=== PATIENT | female | born 1950 | race Caucasian/White ===

== ENCOUNTER 2022-02-10 15:24 | Inpatient (IN) | payer MEDICARE, MEDICAID ==
[~2022-02-10] VITALS: Ht 162.6 cm; Wt 75.2 kg
[~2022-02-10 15:24] MED LIST: CLON-592 PO; ESOM40CA PO; FLUO40CA7 PO; HALO10TA20 PO; LEVA1.2525 NEB; LEVO25TA4 PO; LORA1TAB3 PO; TEMA30 PO; TRIH2TAB3 PO; ZIPR80CA2 PO
[2022-02-10] MEDS ORDERED: MethylPREDNISolone SOD SUCC 125 MG/2 ML VIAL IVP ONE (16:00)
[2022-02-10] MEDS ORDERED: ALBUTEROL SULFATE 5 MG/ML 20 ML NEB SOLN [BULK] NEB ONE (16:00)
[2022-02-10] MEDS ORDERED: SODIUM CHLORIDE 0.9% 1,000 ML IV ONE ×2 (16:00→21:30)
[2022-02-10 16:29] LABS: BASOPHILS % (AUTO) 0.2 % (0.0-2.0); EOSINOPHILS % (AUTO) 0.2 % (1.0-6.0); HEMATOCRIT 26.7 % (36-46); HEMOGLOBIN 8.1 g/dL (12.0-16.0); LYMPHOCYTES # (AUTO) 0.7 K/uL (1.0-4.8); LYMPHOCYTES % (AUTO) 5.2 % (22.0-44.0); MEAN CORPUSCULAR HEMOGLOBIN 21.4 pg (26.0-34.0); MEAN CORPUSCULAR HGB CONC 30.5 G/dL (31.0-37.0); MEAN CORPUSCULAR VOLUME 70 fL (80-100); MONOCYTES # (AUTO) 0.9 K/uL (0.1-1.0); MONOCYTES % (AUTO) 6.2 % (2.0-9.0); NEUTROPHILS # (AUTO) 12.4 K/uL (1.8-7.7); PLATELET COUNT (AUTO) 422 K/uL (150-450); RED CELL DISTRIBUTION WIDTH 20.5 % (11.5-14.5)
[2022-02-10 16:33] LABS: NEUTROPHILS % (AUTO) 88.2 % (40.0-70.0)
[2022-02-10 16:35] LABS: COVID AG,FIA SOURCE NASOPHARYNGEAL
[2022-02-10 16:40] LABS: CALCIUM, TOTAL 9.2 mg/dL (8.8-10.5); CREATININE 1.63 mg/dL (0.60-1.30); POTASSIUM 4.3 mmol/L (3.5-5.1)
[2022-02-10 16:46] LABS: ALBUMIN 2.7 g/dL (3.4-5.0); BILIRUBIN,TOTAL 0.2 mg/dL (0.1-1.0)
[2022-02-10 16:46] LABS: APPEARANCE,URINE HAZY (CLEAR); BILIRUBIN,URINE NEGATIVE (NEGATIVE); GLUCOSE, URINE (UA) NEGATIVE (NEGATIVE); KETONES,URINE NEGATIVE (NEGATIVE); LEUKOCYTE ESTERASE ,URINE MODERATE (NEGATIVE); NITRATE,URINE POSITIVE (NEGATIVE); OCCULT BLOOD,URINE NEGATIVE (NEGATIVE); PROTEIN,URINE TRACE mg/dL (NEGATIVE); SPECIFIC GRAVITIY, URINE 1.014 (1.003-1.030); UROBILINOGEN,URINE <=1.0 mg/dL (<=1.0)
[2022-02-10 16:56] LABS: INFLUENZA TYPE A NEGATIVE FOR TYPE A (NEGATIVE); INFLUENZA TYPE B NEGATIVE FOR TYPE B (NEGATIVE)
[2022-02-10 17:10] LABS: BACTERIA,URINE Many /HPF (None Seen); RBC,URINE 0-2 /HPF (0-2); SQUAMOUS EPITHELIAL CELL,UR Few /LPF (None Seen)
[2022-02-10] MEDS ORDERED: LEVOFLOXACIN 500 MG/D5% WATER 100 ML IV ONE (17:15)
[2022-02-10] MEDS ORDERED: PIPERACILLIN/TAZO 3.375 GM/D5W 50 ML IV ONE (17:15)
[2022-02-10] MEDS ORDERED: LORA-1000 PO (17:19)
[2022-02-10] MEDS ORDERED: TEMA15CA PO (17:19)
[2022-02-10] MEDS ORDERED: HALO10TA21 PO (17:19)
[2022-02-10] MEDS ORDERED: *CLINICAL-LEVOFLOXACIN IVPB DOSING CLINICAL ONE (19:00)
[2022-02-10] MEDS ORDERED: ACETAMINOPHEN 325 MG TABLET PO PRN (19:00)
[2022-02-10] MEDS ORDERED: IPRATROPIUM BROMIDE 0.5 MG/2.5 ML NEB SOLUTION NEB PRN (19:00)
[2022-02-10] MEDS ORDERED: IPRATROPIUM BROMIDE 0.5 MG/2.5 ML NEB SOLUTION NEB SCH (19:00)
[2022-02-10] MEDS ORDERED: ALBUTEROL SULFATE 2.5 MG/0.5 ML NEB SOLUTION NEB SCH (19:00)
[2022-02-10] MEDS ORDERED: ONDANSETRON HCL 4 MG/2 ML VIAL IVP PRN ×2 (19:00)
[2022-02-10] MEDS ORDERED: ALBUTEROL SULFATE 2.5 MG/0.5 ML NEB SOLUTION NEB PRN (19:00)
[2022-02-10 20:23] LABS: % IRON SATURATION 2.3 % (22-44)
[2022-02-10] MEDS ORDERED: LEVOFLOXACIN 250 MG/D5% WATER 50 ML IV ONE (21:00)
[2022-02-10] MEDS: SODIUM CHLORIDE 0.9% 1,000 ML IV SCH (21:30)
[2022-02-10] MEDS ORDERED: NALOXONE HCL 0.4 MG/ML VIAL IVP ONE (21:30)
[2022-02-10] MEDS ORDERED: AMLO-257 PO (22:16)
[2022-02-10] MEDS ORDERED: ATOR10TA PO (22:16)
[2022-02-10] MEDS ORDERED: LOSA-382 PO (22:16)
[2022-02-10] MEDS ORDERED: CLON-592 PO (22:16)
[2022-02-10] MEDS ORDERED: SODIUM CHLORIDE PO (22:16)
[2022-02-10] MEDS ORDERED: LEVO50 PO (22:16)
[2022-02-10] MEDS ORDERED: METF-1211 PO (22:16)
[2022-02-10] MEDS ORDERED: HALO50AM2 IM (22:16)
[2022-02-10] MEDS ORDERED: TRIH5TAB3 PO (22:16)
[2022-02-10] MEDS ORDERED: MAGN200T5 PO (22:16)
[2022-02-10] MEDS ORDERED: ZIPR40CA38 PO (22:16)
[2022-02-10] MEDS ORDERED: FLUO10CA24 PO (22:16)
[2022-02-10] MEDS ORDERED: [UNRECOGNIZED DRUG - OTHER] PO (22:16)
[2022-02-10] MEDS ORDERED: TRAZ-252 PO (22:16)
[2022-02-11] MEDS ORDERED: HEPARIN SODIUM,PORCINE 5,000 UNITS/ML VIAL SQ SCH
[2022-02-11 01:14] VITALS: BP 136/86
[2022-02-11 06:38] LABS: EOSINOPHILS % (AUTO) 0 % (1.0-6.0); HEMATOCRIT 24.9 % (36-46); HEMOGLOBIN 7.7 g/dL (12.0-16.0); LYMPHOCYTES # (AUTO) 0.5 K/uL (1.0-4.8); LYMPHOCYTES % (AUTO) 3.9 % (22.0-44.0); MEAN CORPUSCULAR HEMOGLOBIN 21.8 pg (26.0-34.0); MEAN CORPUSCULAR VOLUME 70 fL (80-100); MONOCYTES # (AUTO) 0.1 K/uL (0.1-1.0); MONOCYTES % (AUTO) 1.2 % (2.0-9.0); NEUTROPHILS # (AUTO) 11.4 K/uL (1.8-7.7); PLATELET COUNT (AUTO) 346 K/uL (150-450); RED BLOOD CELL COUNT(AUTO) 3.53 MIL/uL (4.00-5.20)
[2022-02-11 06:47] LABS: CALCIUM, TOTAL 8.7 mg/dL (8.8-10.5); CREATININE 1.18 mg/dL (0.60-1.30); MAGNESIUM 2.2 mg/dL (1.80-2.40); POTASSIUM 4.2 mmol/L (3.5-5.1)
[2022-02-11 07:07] LABS: NEUTROPHILS % (AUTO) 94.9 % (40.0-70.0)
[2022-02-11 07:10] VITALS: BP 150/78
[2022-02-11 08:40] LABS: AMPHET/METH SCREEN,URINE NEGATIVE (NEGATIVE); BARBITURATE SCREEN, URINE NEGATIVE (NEGATIVE); BENZODIAZEPINES SCREEN,URINE NEGATIVE (NEGATIVE); CANNABINOID SCREEN,URINE NEGATIVE (NEGATIVE); COCAINE SCREEN,URINE NEGATIVE (NEGATIVE); METHADONE SCREEN, URINE NEGATIVE (NEGATIVE); OPIATE SCREEN,URINE NEGATIVE (NEGATIVE)
[2022-02-11 08:42] LABS: PHENCYCLIDINE SCREEN,URINE POSITIVE (NEGATIVE)
[2022-02-11] MEDS ORDERED: ZIPR60CA29 PO (10:45)
[2022-02-11] MEDS ORDERED: FLUO20CA36 PO (10:45)
[2022-02-11] MEDS ORDERED: NACL1 PO (10:45)
[2022-02-11] MEDS ORDERED: HALO100V36 IM (10:45)
[2022-02-11] MEDS ORDERED: MAGN400T57 PO (10:45)
[2022-02-11] MEDS ORDERED: TRAZ150T80 PO (10:45)
[2022-02-11 11:10] VITALS: BP 142/63
[2022-02-11] MEDS ORDERED: LEVOFLOXACIN 500 MG/D5% WATER 100 ML IV SCH (11:45)
[2022-02-11] MEDS: SODIUM CHLORIDE 0.9% 1,000 ML IV SCH (13:08)
[2022-02-11 15:27] VITALS: BP 136/78
[2022-02-11 19:29] VITALS: BP 143/72
[2022-02-11 23:41] VITALS: BP 131/57
[2022-02-12] MEDS: LEVOFLOXACIN 500 MG/D5% WATER 100 ML IV SCH (00:18)
[2022-02-12] MEDS: HEPARIN SODIUM,PORCINE 5,000 UNITS/ML VIAL SQ SCH ×3 (00:18→17:15)
[2022-02-12] MEDS: SODIUM CHLORIDE 0.9% 1,000 ML IV SCH ×2 (02:32→20:00)
[2022-02-12 06:13] VITALS: BP 145/59
[2022-02-12 07:43] VITALS: BP 149/80
[2022-02-12 10:52] VITALS: BP 124/58
[2022-02-12 15:32] VITALS: BP 135/66
[2022-02-12] MEDS ORDERED: LEVOFLOXACIN 750 MG/D5% WATER 150 ML IV SCH (18:00)
[2022-02-12 20:15] VITALS: BP 133/73
[2022-02-13] MEDS: LEVOFLOXACIN 500 MG/D5% WATER 100 ML IV SCH (00:13)
[2022-02-13] MEDS: HEPARIN SODIUM,PORCINE 5,000 UNITS/ML VIAL SQ SCH ×3 (00:13→16:30)
[2022-02-13 00:18] VITALS: BP 146/74
[2022-02-13 06:05] VITALS: BP 138/59
[2022-02-13 07:30] VITALS: BP 148/67
[2022-02-13 10:10] LABS: BASOPHILS % (AUTO) 0.2 % (0.0-2.0); EOSINOPHILS % (AUTO) 1.5 % (1.0-6.0); HEMATOCRIT 26.5 % (36-46); HEMOGLOBIN 8.4 g/dL (12.0-16.0); LYMPHOCYTES # (AUTO) 1.2 K/uL (1.0-4.8); LYMPHOCYTES % (AUTO) 12.7 % (22.0-44.0); MEAN CORPUSCULAR HEMOGLOBIN 22.2 pg (26.0-34.0); MEAN CORPUSCULAR HGB CONC 31.7 G/dL (31.0-37.0); MEAN CORPUSCULAR VOLUME 70 fL (80-100); MONOCYTES # (AUTO) 0.6 K/uL (0.1-1.0); MONOCYTES % (AUTO) 6.4 % (2.0-9.0); NEUTROPHILS # (AUTO) 7.7 K/uL (1.8-7.7); NEUTROPHILS % (AUTO) 79.2 % (40.0-70.0); PLATELET COUNT (AUTO) 403 K/uL (150-450); RED BLOOD CELL COUNT(AUTO) 3.79 MIL/uL (4.00-5.20); RED CELL DISTRIBUTION WIDTH 19.9 % (11.5-14.5)
[2022-02-13 10:16] LABS: CALCIUM, TOTAL 8.8 mg/dL (8.8-10.5); CREATININE 0.94 mg/dL (0.60-1.30); POTASSIUM 4.2 mmol/L (3.5-5.1)
[2022-02-13 10:23] LABS: ALBUMIN 2.3 g/dL (3.4-5.0); BILIRUBIN,TOTAL 0.2 mg/dL (0.1-1.0); TOTAL PROTEIN, SERUM 6.8 g/dL (6.4-8.2)
[2022-02-13 11:10] VITALS: BP 138/54
[2022-02-13] MEDS ORDERED: TRIH5TAB4 PO (11:51)
[2022-02-13 15:23] LABS: AMPHET/METH SCREEN,URINE NEGATIVE (NEGATIVE); BARBITURATE SCREEN, URINE NEGATIVE (NEGATIVE); BENZODIAZEPINES SCREEN,URINE NEGATIVE (NEGATIVE); CANNABINOID SCREEN,URINE NEGATIVE (NEGATIVE); COCAINE SCREEN,URINE NEGATIVE (NEGATIVE); METHADONE SCREEN, URINE NEGATIVE (NEGATIVE); OPIATE SCREEN,URINE NEGATIVE (NEGATIVE)
[2022-02-13 15:30] LABS: PHENCYCLIDINE SCREEN,URINE NEGATIVE (NEGATIVE)
[2022-02-13] MEDS ORDERED: ALBU8HFA IH (15:32)
[2022-02-13] MEDS ORDERED: LEVO750T68 PO (15:32)
[2022-02-13 15:45] VITALS: BP 145/74
[2022-02-13] MEDS: SODIUM CHLORIDE 0.9% 1,000 ML IV SCH (18:55)
[2022-02-13 20:47] VITALS: BP 158/73
[2022-02-14] MEDS ORDERED: GuaiFENesin SR 600 MG ER TABLET PO PRN
[2022-02-14] MEDS ORDERED: ZOLPIDEM TARTRATE 5 MG TABLET PO PRN
[2022-02-14] MEDS: LEVOFLOXACIN 500 MG/D5% WATER 100 ML IV SCH (00:14)
[2022-02-14] MEDS: HEPARIN SODIUM,PORCINE 5,000 UNITS/ML VIAL SQ SCH ×2 (00:14→09:00)
[2022-02-14 00:59] VITALS: BP 147/72
[2022-02-14 04:53] VITALS: BP 136/70
[2022-02-14 07:42] VITALS: BP 141/76
[2022-02-14] MEDS ORDERED: ETHYL ALCOHOL 62% ANTISEPTIC NASAL SANITIZER 0.6 ML AMPUL NASAL ONE (08:15)
[2022-02-14 11:36] VITALS: BP 139/60
[2022-02-14 15:12] VITALS: BP 163/73
[2022-02-14 15:54] LABS: COVID AG,FIA SOURCE NASAL SWAB
[2022-02-14] MEDS ORDERED: ClonazePAM 0.5 MG TABLET PO SCH (16:00)
[2022-02-14 16:56] VITALS: BP 128/56
[2022-02-14] MEDS ORDERED: ATORVASTATIN CALCIUM 10 MG TABLET PO SCH (21:00)
[2022-02-15] MEDS ORDERED: LEVOTHYROXINE SODIUM 50 MCG TABLET PO SCH (06:30)
[2022-02-15] MEDS ORDERED: MetFORMIN HCL 500 MG TABLET PO SCH (08:00)
[2022-02-15] MEDS ORDERED: OMEGA-3/DHA/EPA/FISH OIL 1,000 MG CAPSULE PO SCH (09:00)
[2022-02-15] MEDS ORDERED: LOSARTAN POTASSIUM 50 MG TABLET PO SCH (09:00)
[2022-02-15] MEDS ORDERED: AmLODIPine BESYLATE 5 MG TABLET PO SCH (09:00)
[2022-02-15] MEDS ORDERED: LEVOFLOXACIN 750 MG TABLET PO SCH (09:00)
[2022-02-22] MEDS ORDERED: HALOPERIDOL DECANOATE 100 MG/ML VIAL IM SCH (09:00)
== END 2022-02-14 18:50 | DRG 871 ==
LOC: EMS 15:24 → 5S 19:33
PROVIDERS: ADMIT Internal Medicine; ATTEND Internal Medicine
PROC: 5A09357 Assistance with Respiratory Ventilation, Less than 24 Consecutive Hours, Continuous Positive Airway Pressure (ICD-10-PCS; principal; 2022-02-10)
DX: A41.9 Sepsis, unspecified organism (principal); G92.8 Other toxic encephalopathy; J18.9 Pneumonia, unspecified organism; J96.01 Acute respiratory failure with hypoxia; N17.9 Acute kidney failure, unspecified; N39.0 Urinary tract infection, site not specified; E11.9 Type 2 diabetes mellitus without complications; D64.9 Anemia, unspecified; F20.9 Schizophrenia, unspecified; I10 Essential (primary) hypertension; J45.909 Unspecified asthma, uncomplicated; F32.A Depression, unspecified; Z79.899 Other long term (current) drug therapy; Z88.8 Allergy status to other drugs, medicaments and biological substances
CPT/HCPCS: 36600; 51701; 70450; 71045; 71250; 72125; 74230; 76770; 80048; 80053; 80307; 81001; 82550; 82805; 83540; 83550; 83605; 83735; 83880; 84145; 84443; 84484; 85025; 85045; 87040; 87081; 87086; 87186; 87804; 92526; 92610; 92611; 93005; 94644; 94660; 97116; 97162; 97530; 97535; 99291; G0378; J1644; J1956; J2543; J2930; J7030; Q9967; 36415-L1; 36415-TC; J7611